=== PATIENT | female | born 1950 | race Caucasian/White ===

== ENCOUNTER 2024-06-03 05:42 | Outpatient (CLI) | payer MEDICARE, OTHER | END 2024-06-03 23:59 | disposition critical access hospital (66) | LOC: EMS 05:42 | DX: R11.10 Vomiting, unspecified (principal); Z43.3 Encounter for attention to colostomy | CPT/HCPCS: A0425; A0429 ==

== ENCOUNTER 2024-06-03 06:02 | Emergency (ER) | payer MEDICARE, OTHER ==
[2024-06-03 06:49] LABS: BASOPHILS # (AUTO) 0.2 10^3/uL (0.0-0.1); EOSINOPHILS # (AUTO) 0.2 10^3/uL (0.0-0.7); EOSINOPHILS % (AUTO) 2.8 %; HCT - HEMATOCRIT 30.8 % (37.0-47.0); HGB - HEMOGLOBIN 9.5 g/dL (12.0-16.0); LYMPHOCYTES # (AUTO) 0.9 10^3/uL (1.5-3.5); LYMPHOCYTES % (AUTO) 10.4 %; MEAN CORPUSCULAR HEMOGLOBIN 26.9 pg (27.0-31.0); MEAN CORPUSCULAR HGB CONC 30.8 g/dL (32.0-36.0); MEAN CORPUSCULAR VOLUME 87.3 fL (81.0-99.0); MEAN PLATELET VOLUME 10.3 fL (7.9-10.8); MONOCYTES # (AUTO) 0.1 10^3/uL (0.0-1.0); MONOCYTES % (AUTO) 0.6 %; NEUTROPHILS # (AUTO) 6.8 10^3/uL (1.5-6.6); NEUTROPHILS % (AUTO) 80.4 %; PLT - PLATELET COUNT 487 10^3/uL (130-450); RED BLOOD COUNT 3.53 10^6/uL (4.20-5.40); RED CELL DISTRIBUTION WIDTH 15.1 % (12.0-15.0); WHITE BLOOD COUNT 8.5 x10^3/uL (4.8-10.8)
[2024-06-03 07:07] LABS: ALBUMIN 3.2 g/dL (3.2-5.5); BILIRUBIN,TOTAL 0.4 mg/dL (0.2-1.0); CALCIUM 8.3 mg/dL (8.5-10.3); CREATININE 0.6 mg/dL (0.6-1.3); POTASSIUM 3.9 mmol/L (3.5-4.5); TOTAL PROTEIN 6.5 g/dL (6.4-8.9)
[2024-06-03] MEDS: SODIUM CHLORIDE 0.9% 1,000 ML IV STA (07:30)
[2024-06-03] MEDS: ONDANSETRON 4 MG/2 ML VIAL IVP STA (07:30)
--- NOTE | 2024-06-03 08:00 | ED Physician Documentation ---
History of Present Illness - Stated complaint Stated Complaint: VOMITING - Chief complaint Chief Complaint: Abd Pain - History obtained from History obtained from: Patient, Family - Additonal information Additional information: The patient comes to the emergency department with chief complaint of "my ostomy bag came off" and also, an episode of nausea and vomiting. The patient is from [place] and was recently diagnosed with metastatic ovarian cancer at [facility]. She was started on a regimen of chemotherapy and colostomy was performed on 18 May, secondary to pressure being exerted on her distal colon from the tumor. The patient states that the ostomy bag has come off multiple times at night and nobody is sure why. She states that after having the bag replaced a couple of times, the nurses were not able to find all of the right parts they needed for a new bag and they had to dip into her bag of supplies they were going to send her home with. The patient states that because of this, she was sent home with a bag of mismatched parts which she does not know how to use. She does state that some teaching was done at the hospital but she does not know how to use what she has. She states there is an ostomy nurse that is supposed to come do some teaching at her sister's house, where she is staying, today. Parts were also ordered for complete ostomy bag sets, and were supposed to arrive over the weekend, but did not, likely because of the holiday. The patient states that she is not feeling nauseated anymore after receiving Zofran but is having some lower abdominal cramping. She also has some reflux and esophagitis issues and has some diverticuli with in the esophagus that are posing a less urgent problem. She states that GI is planning to work with general surgery and that the plan is for these to be removed after her cancer is more under control. No fevers. No pain other than the cramping. She has been having good output from her ostomy site. There is some rawness of the tissue immediately around the site and the patient and sister state that the patient was placed on antibiotics for possible ostomy infection. She is still on these. The patient also is taking 6 mg of Dilaudid every 4 hours to help with pain. No other complaints at this time. The patient is feeling generally overwhelmed with the situation. 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 HEENT: Tonsil/Adenoidectomy - Allergies Allergies/Adverse Reactions: Allergies Allergy/AdvReac Type Severity Reaction Status Date / Time codeine Allergy Nausea Verified 06/03/24 06:15 Penicillins Allergy Hives Verified 06/03/24 06:15 Phenothiazines Allergy Cramps Verified 06/03/24 06:15 Sulfa (Sulfonamide Allergy Hives Verified 06/03/24 06:15 Antibiotics) - Social History Does the pt smoke?: No Smoking Status: Never smoker Does the pt drink ETOH?: No PD ED PE NORMAL - Vitals Vital signs reviewed: Yes - General General: Alert and oriented X 3, No acute distress, Well developed/nourished - HEENT HEENT: Atraumatic, EOMI, Moist mucous membranes - Neck Neck: Supple, no meningeal sign - Cardiac Cardiac: RRR, No murmur - Respiratory Respiratory: No respiratory distress, Clear bilaterally - Abdomen Abdomen: Soft, Non tender (No rebound or guarding.), Non distended, Other (Healthy-appearing ostomy site with mild maceration around the opening. Soft light brown stool expressed from ostomy site. New bag solidly in place. No redness spreading away from the wound.) - Derm Derm: Normal color, Warm and dry, No rash - Extremities Extremities: No deformity, No edema - Neuro Neuro: Alert and oriented X 3 - Psych Psych: Normal mood, Normal affect Results - Vitals Vitals: Vital Signs - 24 hr 06/03/24 06/03/24 06/03/24 06:04 08:13 10:00 Temperature 36.0 C L Heart Rate 83 85 88 Respiratory 18 16 16 Rate Blood Pressure 119/80 163/93 H 134/84 H O2 Saturation 99 100 98 06/03/24 06/03/24 06/03/24 12:00 14:00 16:00 Temperature Heart Rate 80 83 80 Respiratory 14 16 16 Rate Blood Pressure 129/88 H 125/90 H 132/84 H O2 Saturation 94 95 98 06/03/24 18:00 Temperature Heart Rate 84 Respiratory 16 Rate Blood Pressure 140/83 H O2 Saturation 100 Oxygen O2 Source Room air - Labs Labs: Laboratory Tests 06/03/24 06/03/24 06:43 06:43 WBC 8.5 RBC 3.53 L Hgb 9.5 L Hct 30.8 L MCV 87.3 MCH 26.9 L MCHC 30.8 L RDW 15.1 H Plt Count 487 H MPV 10.3 Neut # (Auto) 6.8 H Lymph # (Auto) 0.9 L Cannon # (Auto) 0.1 Eos # (Auto) 0.2 Baso # (Auto) 0.2 H Absolute Nucleated RBC 0.00 Nucleated RBC % 0.0 Sodium 133 L Potassium 3.9 Chloride 98 L Carbon Dioxide 27 Anion Gap 8.0 BUN 26 H Creatinine 0.6 Estimated GFR (MDRD) 99 Glucose 110 H Calcium 8.3 L Total Bilirubin 0.4 AST 45 H ALT 36 Alkaline Phosphatase 117 Total Protein 6.5 Albumin 3.2 Globulin 3.3 Albumin/Globulin Ratio 1.0 Lipase 20 PD Medical Decision Making - ED course Complexity details: reviewed results, re-evaluated patient, considered differential, d/w patient, d/w family ED course: Laboratory studies were performed and showed a normal white blood cell count and moderately decreased hemoglobin at 9.5. Platelets were 47. ER abdominal panel showed a slightly low sodium 133 glucose of 110. Calcium 8.3. Remainder of labs are unremarkable. The patient was given Zofran, Dilaudid, and a liter of fluid. I spoke with our oncology manager wound care nurse Phyllis Fry, and she came over to see the patient in the ED. Social work was consulted after this as the patient decided that she would really just like to go to a SNF for this springer pport while she goes through her treatment. The sister was also agreeable. At this point in time, [facility] is looking at the patient according to social work and the patient will likely transfer tomorrow, pending insurance authorization. [facility] in the emergency department while awaiting transfer. Departure - Departure Forms: PCP List
[2024-06-03] MEDS: HYDROmorphone 1 MG/ML CARPUJECT IVP STA (08:43)
[2024-06-03] MEDS: HYDROmorphone 1 MG/ML CARPUJECT IVP PRN (11:44)
[2024-06-04] MEDS: MIN OIL/DIMETHICON/COCONUT OIL 92 GM TUBE TOP STA (13:40)
[2024-06-04] MEDS: MAG HYDROX/AL HYDROX/SIMETH 30 ML UDC PO STA (17:38)
[2024-06-04] MEDS: LIDOCAINE VISCOUS 2% 15 ML UDC MM STA (20:09)
[2024-06-04] MEDS: SUCRALFATE 1 GM/10 ML UDC PO STA (20:09)
--- NOTE | 2024-06-04 23:17 | ED Physician Documentation ---
ED Addendum - Addendum Addendum: 06/04/24 23:17 No changes during my shift. Patient signed out to the oncoming emergency department physician.
--- NOTE | 2024-06-06 16:47 | ED Physician Documentation ---
ED Addendum - Addendum Addendum: 06/06/24 16:46 Patient is boarding awaiting placement at [facility]. She is scheduled to go there tomorrow. Social work asked me to fill out to [facility] orders for her. This was done but informed that these will on Sunday and that they need to be redone by her PCP or by the telehealth provider at [facility].
--- NOTE | 2024-06-06 21:08 | ED Physician Documentation ---
ED Addendum - Addendum Addendum: 06/06/24 21:08 Prescriptions were all sent to [facility]. Departure - Departure Disposition: [facility] DC/Xfer Clinical Impression: Ovarian cancer Qualifiers: Laterality: unspecified laterality Qualified Code(s): C56.9 - Malignant neoplasm of unspecified ovary Condition: Stable Prescriptions: metroNIDAZOLE [Flagyl] 500 mg PO Q8HR #10 tab ondansetron HCL [Ondansetron HCl] 8 mg PO Q8HR PRN #10 tab PRN Reason: Nausea / Vomiting dexAMETHasone [Decadron] 8 mg PO UD #10 tab HYDROmorphone [Dilaudid] 6 mg PO Q4H PRN #10 tab PRN Reason: Pain 5-7 Apixaban [Eliquis] 2.5 mg PO UD #10 tab Fluticasone Propionate 1 spray IH DAILY PRN #1 each PRN Reason: Allergy Symptoms Simethicone [Gas Relief] 80 mg PO QID #30 Hydrocodone/Acetaminophen [Hydrocodone-Acetamin 10-325 mg] 1 tab PO BID PRN #10 tab PRN Reason: Pain 1-4 levoFLOXacin [Levofloxacin] 750 mg PO HS #7 tab Magnesium Oxide [Magnesium] 400 mg PO BID #10 cap Psyllium [Metamucil] 1 each PO DAILY #10 packet polyethylene glycoL 3350 [Miralax] 17 gm PO BID #10 packet Simethicone [Mylanta Gas Minis] 125 mg PO DAILY PRN #30 PRN Reason: Gas Nystatin [Nystop] 1 applic TOP BID #1 each Acetaminophen [Tylenol] 1,000 mg PO BID PRN #10 tab PRN Reason: Pain 1-4 Albuterol Sulf [Ventolin Hfa Inhaler] 1 - 2 puffs INH BID #1 each Forms: PCP List
[2024-06-07] MEDS: levoFLOXacin 250 MG TABLET PO STA (00:59)
[2024-06-07] MEDS: metroNIDAZOLE 250 MG TABLET PO STA (01:00)
[2024-06-07] MEDS: ENOXAPARIN 40 MG/0.4 ML SYRINGE SUBQ STA (01:01)
[2024-06-07 07:04] VITALS: BP 134/83; O2SAT 96
[2024-06-07] MEDS: HYDROmorphone 1 MG/ML CARPUJECT IVP STA (07:55)
== END 2024-06-07 08:12 ==
LOC: ED 06:02
DX: C56.9 Malignant neoplasm of unspecified ovary (principal); K94.03 Colostomy malfunction
CPT/HCPCS: 36415; 80053; 83690; 85025; 96361; 96372; 96374; 96375; 96376; 99284; 99285; A6250; A9270; J1170; J1650